=== PATIENT | male | born 1950 | race Caucasian/White ===

== ENCOUNTER 2025-06-12 17:49 | Inpatient (IN) ==
[2025-06-12] MEDS: LACTATED RINGERS 1,000 ML IV ONE (19:01)
[2025-06-12 19:15] LABS: Basophils # (Auto) 0.01 K/mcL (0.00-0.30); Basophils % (Auto) 0.1 % (0.0-2.0); Eosinophils # (Auto) 0.05 K/mcL (0.00-0.70); Eosinophils % (Auto) 0.7 % (0.0-7.0); Hematocrit 35.9 % (40.1-51.0); Hemoglobin 11.4 g/dL (13.7-17.5); Lymphocytes # (Auto) 0.68 K/mcL (1.50-4.80); Lymphocytes % (Auto) 9.1 % (15.5-49.0); Mean Corpuscular HGB Conc 31.8 g/dL (31.0-36.0); Monocytes # (Auto) 0.50 K/mcL (0.10-0.90); Monocytes % (Auto) 6.7 % (1.0-12.0); Neutrophils % (Auto) 83.1 % (38.0-78.0); Platelet Count 219 K/mcL (140-440); RBC 3.75 M/mcL (4.63-6.08); WBC 7.5 K/mcL (4.5-11.0)
[2025-06-12 19:35] LABS: Anion Gap 13.0 (8.0-16.0); Blood Urea Nitrogen 35 mg/dL (8-23); Calcium 10.0 mg/dL (8.6-10.4); Carbon Dioxide 22 mmol/L (22-30); Chloride 105 mmol/L (96-108); Creatine Kinase 227 U/L (24-195); Glucose 162 mg/dL (70-105); Potassium 5.4 mmol/L (3.3-5.1); Sodium 140 mmol/L (133-145)
[2025-06-12 19:43] LABS: INR 1.0 (0.9-1.1); Partial Thromboplastin Time 27.7 sec (20.0-37.0); Prothrombin Time 13.7 sec (11.9-14.5)
[2025-06-12] MEDS ORDERED: POTASSIUM CHLORIDE 20 MEQ TABLET PO PRN ×2 (20:40)
[2025-06-12] MEDS ORDERED: POLYETHYLENE GLYCOL 3350 17 GM PACKET PO PRN (20:40)
[2025-06-12] MEDS ORDERED: MAGNESIUM SULFATE 2 GM/50 ML BAG IV PRN (20:40)
[2025-06-12] MEDS ORDERED: DEXTROSE 31 GM ORAL.SUSP PO PRN (20:40)
[2025-06-12] MEDS ORDERED: ACETAMINOPHEN 325 MG TABLET PO PRN (20:40)
[2025-06-12] MEDS ORDERED: METOCLOPRAMIDE 10 MG/2 ML VIAL IV PRN (20:40)
[2025-06-12] MEDS ORDERED: POTASSIUM CHLORIDE 40 MEQ in DEXTROSE 5% IN WATER 500 ML IV PRN (20:40)
[2025-06-12] MEDS ORDERED: ONDANSETRON 4 MG/2 ML VIAL IV PRN (20:40)
[2025-06-12] MEDS ORDERED: IPRATROPIUM/ALBUTEROL 3 ML AMPUL.NEB NEB PRN (20:40)
[2025-06-12] MEDS ORDERED: DEXTROSE 50% 50 ML VIAL IV PRN (20:40)
[2025-06-12] MEDS ORDERED: SENNOSIDES 1 TABLET PO PRN (20:40)
[2025-06-12] MEDS: GABAPENTIN 300 MG CAPSULE PO SCH (21:16)
[2025-06-12] MEDS: 0.9 % SODIUM CHLORIDE 1,000 ML IV ONE (21:17)
[2025-06-12] MEDS: 0.9 % SODIUM CHLORIDE 10 ML SYRINGE IV SCH (21:23)
[2025-06-12] MEDS: DOCUSATE SODIUM 100 MG CAPSULE PO SCH (21:23)
[2025-06-12] MEDS: INSULIN LISPRO 1 UNIT/0.01 ML UNIT SQ SCH (21:44)
[2025-06-12] MEDS: hydrALAZINE 20 MG/ML VIAL IV PRN (22:16)
[2025-06-12] MEDS: 0.9 % SODIUM CHLORIDE 1,000 ML IV SCH (23:01)
[2025-06-13 05:48] LABS: ALT/SGPT 16 U/L (<40); AST/SGOT 27 U/L (<40); Albumin 3.7 gm/dL (3.2-5.2); Albumin/Globulin Ratio 1.9 (1.0-2.3); Alkaline Phosphatase 24 U/L (39-117); Anion Gap 9.0 (8.0-16.0); Bilirubin,Direct 0.2 mg/dL (<0.3); Bilirubin,Total 0.4 mg/dL (0.1-1.0); Blood Urea Nitrogen 31 mg/dL (8-23); Calcium 9.3 mg/dL (8.6-10.4); Carbon Dioxide 25 mmol/L (22-30); Chloride 107 mmol/L (96-108); Globulin 2.0 gm/dL (2.2-3.7); Glucose 109 mg/dL (70-105); Phosphorous 3.7 mg/dL (2.5-4.5); Potassium 4.7 mmol/L (3.3-5.1); Sodium 141 mmol/L (133-145); Triglycerides 80 mg/dL (<150); Uric Acid 4.3 mg/dL (2.5-8.0)
[2025-06-13] MEDS: LISINOPRIL 20 MG TABLET PO SCH (08:36)
[2025-06-13] MEDS: GABAPENTIN 300 MG CAPSULE PO SCH (08:36)
[2025-06-13] MEDS ORDERED: ONDANSETRON 4 MG/2 ML VIAL ONE (13:35)
[2025-06-13] MEDS ORDERED: METOCLOPRAMIDE 10 MG/2 ML VIAL ONE (13:35)
[2025-06-13] MEDS ORDERED: LIDOCAINE 2% PF 5 ML VIAL ONE (13:35)
[2025-06-13] MEDS ORDERED: ePHEDrine 50 MG/5 ML SYRINGE (ANEST) IV ONE (13:35)
[2025-06-13] MEDS ORDERED: PHENYLephrine 1 MG/10 ML SYRINGE (ANEST) ONE (13:35)
[2025-06-13] MEDS ORDERED: DEXAMETHASONE 10 MG/ML VIAL ONE (13:35)
[2025-06-13] MEDS ORDERED: FAMOTIDINE/PF 20 MG/2 ML VIAL IV ONE (13:35)
[2025-06-13] MEDS ORDERED: GLYCOPYRROLATE 0.2 MG/ML VIAL IV ONE (13:35)
[2025-06-13] MEDS ORDERED: PROPOFOL 200 MG/20 ML VIAL IV ONE (13:36)
[2025-06-13] MEDS ORDERED: MIDAZOLAM 2 MG/2 ML VIAL ONE (13:37)
[2025-06-13] MEDS ORDERED: HYDROmorphone 0.5 MG/0.5 ML SYRINGE ONE (17:37)
[2025-06-13] MEDS ORDERED: ROCURONIUM 10 MG/ML ML IV ONE (17:46)
[2025-06-13] MEDS ORDERED: fentaNYL 100 MCG/2 ML VIAL ONE (17:59)
[2025-06-13] MEDS: VANCOMYCIN 1 GM VIAL TOPICAL SCH (18:00)
[2025-06-13] MEDS ORDERED: IPRATROPIUM/ALBUTEROL 3 ML AMPUL.NEB NEB PRN (18:02)
[2025-06-13] MEDS ORDERED: DROPERIDOL 5 MG/2 ML VIAL IV PRN (18:02)
[2025-06-13] MEDS ORDERED: HYDROmorphone 0.5 MG/0.5 ML SYRINGE IV PRN (18:02)
[2025-06-13] MEDS ORDERED: fentaNYL 100 MCG/2 ML VIAL IV PRN (18:02)
[2025-06-13] MEDS ORDERED: SUGAMMADEX SODIUM 200 MG/2 ML VIAL IV ONE (18:13)
[2025-06-13] MEDS ORDERED: ROPIVACAINE HCL/PF 30 ML VIAL IJ ONE (18:20)
[2025-06-13] MEDS ORDERED: BENZOCAINE/MENTHOL 1 LOZENGE PO PRN (18:23)
[2025-06-13] MEDS ORDERED: MAGNESIUM HYDROXIDE 30 ML ORAL.SUSP PO PRN (18:23)
[2025-06-13] MEDS ORDERED: BISACODYL 10 MG SUPP.RECT PR PRN (18:23)
[2025-06-13] MEDS ORDERED: FLEETS ADULT 1 DOSE ENEMA PR PRN (18:23)
[2025-06-13] MEDS ORDERED: POLYETHYLENE GLYCOL 3350 17 GM PACKET PO PRN (18:23)
[2025-06-13] MEDS: SENNOSIDES 1 TABLET PO SCH (20:07)
[2025-06-13] MEDS: DOCUSATE SODIUM 100 MG CAPSULE PO SCH (20:07)
[2025-06-13] MEDS: ceFAZolin 2 GM in DEXTROSE 5% IN WATER 50 ML IV SCH (20:18)
[2025-06-13] MEDS ORDERED: 0.9 % SODIUM CHLORIDE 1,000 ML IV SCH (23:45)
[2025-06-14 05:58] LABS: Hematocrit 33.5 % (40.1-51.0); Hemoglobin 10.6 g/dL (13.7-17.5)
[2025-06-14 07:58] LABS: INR 1.0 (0.9-1.1); Prothrombin Time 14.4 sec (11.9-14.5)
[2025-06-14] MEDS: LACTATED RINGERS 1,000 ML IV SCH (08:52)
[2025-06-14] MEDS: ASPIRIN 81 MG TAB.CHEW CHEWED ONE (10:16)
[2025-06-14 17:01] VITALS: TEMP 97.9; O2SAT 97
[2025-06-14] MEDS ORDERED: ASPIRIN 81 MG TAB.CHEW CHEWED SCH (21:00)
== END 2025-06-14 18:17 | disposition left against medical advice (07) | DRG 522 ==
LOC: ED 17:49 → MEDSUR 20:38
PROVIDERS: ADMIT Internal Medicine; ATTEND Internal Medicine
PROC: HEMIHIP (2025-06-13 17:09)

== ENCOUNTER 2025-06-15 15:13 | Inpatient (IN) ==
[2025-06-15 15:55] LABS: Basophils # (Auto) 0.01 K/mcL (0.00-0.30); Basophils % (Auto) 0.1 % (0.0-2.0); Eosinophils # (Auto) 0.02 K/mcL (0.00-0.70); Eosinophils % (Auto) 0.3 % (0.0-7.0); Hematocrit 30.8 % (40.1-51.0); Hemoglobin 9.9 g/dL (13.7-17.5); Lymphocytes # (Auto) 0.33 K/mcL (1.50-4.80); Lymphocytes % (Auto) 4.9 % (15.5-49.0); Mean Corpuscular HGB Conc 32.1 g/dL (31.0-36.0); Monocytes # (Auto) 0.40 K/mcL (0.10-0.90); Monocytes % (Auto) 6.0 % (1.0-12.0); Neutrophils % (Auto) 88.6 % (38.0-78.0); Platelet Count 209 K/mcL (140-440); RBC 3.21 M/mcL (4.63-6.08); WBC 6.7 K/mcL (4.5-11.0)
[2025-06-15 16:14] LABS: Alcohol,Blood < 0.010 gm/dL (<0.010)
[2025-06-15 16:21] LABS: ALT/SGPT 28 U/L (<40); AST/SGOT 100 U/L (<40); Albumin 3.4 gm/dL (3.2-5.2); Albumin/Globulin Ratio 1.4 (1.0-2.3); Alkaline Phosphatase 31 U/L (39-117); Anion Gap 15.0 (8.0-16.0); Bilirubin,Total 0.7 mg/dL (0.1-1.0); Blood Urea Nitrogen 43 mg/dL (8-23); Calcium 9.3 mg/dL (8.6-10.4); Carbon Dioxide 20 mmol/L (22-30); Chloride 101 mmol/L (96-108); Globulin 2.4 gm/dL (2.2-3.7); Glucose 185 mg/dL (70-105); Potassium 5.0 mmol/L (3.3-5.1); Sodium 136 mmol/L (133-145)
[2025-06-15 16:24] LABS: Creatine Kinase 2470 U/L (24-195)
[2025-06-15] MEDS: PROPOFOL 200 MG/20 ML VIAL IV ONE (16:50)
[2025-06-15] MEDS ORDERED: ONDANSETRON 4 MG/2 ML VIAL IV PRN (19:49)
[2025-06-15] MEDS ORDERED: DEXTROSE 50% 50 ML VIAL IV PRN (19:49)
[2025-06-15] MEDS ORDERED: DEXTROSE 31 GM ORAL.SUSP PO PRN (19:49)
[2025-06-15] MEDS: 0.9 % SODIUM CHLORIDE 1,000 ML IV SCH (20:13)
[2025-06-15] MEDS: INSULIN LISPRO 1 UNIT/0.01 ML UNIT SQ SCH (21:16)
[2025-06-15] MEDS: 0.9 % SODIUM CHLORIDE 10 ML SYRINGE IV SCH (21:16)
[2025-06-15] MEDS: SENNOSIDES 1 TABLET PO SCH (21:20)
[2025-06-15] MEDS: HEPARIN 5,000 UNIT/ML VIAL SQ SCH (21:20)
[2025-06-15] MEDS: ACETAMINOPHEN 500 MG TABLET PO PRN (21:23)
[2025-06-15] MEDS: HYDROmorphone 0.5 MG/0.5 ML SYRINGE IV PRN (23:48)
[2025-06-16] MEDS: ACETAMINOPHEN 325 MG TABLET PO SCH (01:20)
[2025-06-16 06:48] LABS: ALT/SGPT 40 U/L (<40); AST/SGOT 154 U/L (<40); Albumin 3.2 gm/dL (3.2-5.2); Albumin/Globulin Ratio 1.3 (1.0-2.3); Alkaline Phosphatase 34 U/L (39-117); Anion Gap 11.0 (8.0-16.0); Bilirubin,Direct 0.3 mg/dL (<0.3); Bilirubin,Total 0.6 mg/dL (0.1-1.0); Blood Urea Nitrogen 39 mg/dL (8-23); Calcium 9.1 mg/dL (8.6-10.4); Carbon Dioxide 23 mmol/L (22-30); Chloride 102 mmol/L (96-108); Globulin 2.5 gm/dL (2.2-3.7); Glucose 239 mg/dL (70-105); Phosphorous 2.7 mg/dL (2.5-4.5); Potassium 4.2 mmol/L (3.3-5.1); Sodium 136 mmol/L (133-145); Triglycerides 142 mg/dL (<150); Uric Acid 4.7 mg/dL (2.5-8.0)
[2025-06-16 07:36] LABS: Creatine Kinase 4186 U/L (24-195)
[2025-06-16] MEDS ORDERED: ACETAMINOPHEN 500 MG TABLET PO SCH (08:45)
[2025-06-16] MEDS: HYDROmorphone 0.5 MG/0.5 ML SYRINGE IV PRN (08:49)
[2025-06-16] MEDS: 0.9 % SODIUM CHLORIDE 1,000 ML IV SCH (10:16)
[2025-06-16] MEDS: LISINOPRIL 10 MG TABLET PO SCH (10:23)
[2025-06-16] MEDS: GABAPENTIN 300 MG CAPSULE PO SCH ×2 (11:05→21:21)
[2025-06-16] MEDS ORDERED: ACETAMINOPHEN 325 MG TABLET PO PRN (21:04)
[2025-06-17 07:10] LABS: Creatine Kinase 1486 U/L (24-195)
[2025-06-17 07:11] LABS: ALT/SGPT 38 U/L (<40); AST/SGOT 93 U/L (<40); Albumin 2.9 gm/dL (3.2-5.2); Albumin/Globulin Ratio 1.2 (1.0-2.3); Alkaline Phosphatase 31 U/L (39-117); Anion Gap 7.0 (8.0-16.0); Bilirubin,Direct 0.2 mg/dL (<0.3); Bilirubin,Total 0.5 mg/dL (0.1-1.0); Blood Urea Nitrogen 31 mg/dL (8-23); Calcium 8.5 mg/dL (8.6-10.4); Carbon Dioxide 24 mmol/L (22-30); Chloride 106 mmol/L (96-108); Globulin 2.5 gm/dL (2.2-3.7); Glucose 223 mg/dL (70-105); Phosphorous 2.1 mg/dL (2.5-4.5); Potassium 4.2 mmol/L (3.3-5.1); Sodium 137 mmol/L (133-145); Triglycerides 163 mg/dL (<150); Uric Acid 4.1 mg/dL (2.5-8.0)
[2025-06-17] MEDS: HYDROmorphone 0.5 MG/0.5 ML SYRINGE IV PRN (10:39)
[2025-06-17] MEDS: CALCIUM CARBONATE 500 MG TAB.CHEW CHEWED PRN (11:57)
[2025-06-17] MEDS: INSULIN LISPRO 1 UNIT/0.01 ML UNIT SQ SCH ×2 (12:22→21:05)
[2025-06-17] MEDS: POLYETHYLENE GLYCOL 3350 17 GM PACKET PO PRN (17:36)
[2025-06-18 06:30] LABS: ALT/SGPT 33 U/L (<40); AST/SGOT 58 U/L (<40); Albumin 2.7 gm/dL (3.2-5.2); Albumin/Globulin Ratio 1.2 (1.0-2.3); Alkaline Phosphatase 31 U/L (39-117); Anion Gap 7.0 (8.0-16.0); Bilirubin,Direct 0.2 mg/dL (<0.3); Bilirubin,Total 0.4 mg/dL (0.1-1.0); Blood Urea Nitrogen 28 mg/dL (8-23); Calcium 8.8 mg/dL (8.6-10.4); Carbon Dioxide 25 mmol/L (22-30); Chloride 107 mmol/L (96-108); Creatine Kinase 540.0 U/L (24-195); Globulin 2.2 gm/dL (2.2-3.7); Glucose 121 mg/dL (70-105); Phosphorous 2.9 mg/dL (2.5-4.5); Potassium 4.4 mmol/L (3.3-5.1); Sodium 139 mmol/L (133-145); Triglycerides 114 mg/dL (<150); Uric Acid 3.7 mg/dL (2.5-8.0)
[2025-06-18] MEDS ORDERED: INSULIN GLARGINE, HUMAN 1 UNIT/0.01 ML SQ SCH (09:00)
[2025-06-18] MEDS: FUROSEMIDE 40 MG/4 ML VIAL IV SCH (10:26)
[2025-06-18] MEDS: INSULIN GLARGINE, HUMAN 1 UNIT/0.01 ML SQ SCH (10:27)
[2025-06-18 10:50] LABS: Estimated Average Glucose(eAG) 151.0 mg/dL; Hemoglobin A1C 6.9 % Hgb (4.0-6.0)
[2025-06-19 05:54] LABS: Creatine Kinase 228 U/L (24-195)
[2025-06-19 10:57] LABS: Albumin 3.2 gm/dL (3.2-5.2); Anion Gap 14.0 (8.0-16.0); Blood Urea Nitrogen 32.0 mg/dL (8-23); Calcium 9.3 mg/dL (8.6-10.4); Carbon Dioxide 25.0 mmol/L (22-30); Chloride 100.0 mmol/L (96-108); Glucose 227.0 mg/dL (70-105); Phosphorous 3.7 mg/dL (2.5-4.5); Potassium 4.4 mmol/L (3.3-5.1); Sodium 139.0 mmol/L (133-145)
[2025-06-19 12:46] VITALS: TEMP 98.5; O2SAT 95
== END 2025-06-19 14:30 | DRG 558 ==
LOC: ED 15:13 → MEDSUR 19:38
PROVIDERS: ADMIT Internal Medicine; ATTEND Internal Medicine

== ENCOUNTER 2025-06-21 11:24 | Inpatient (IN) ==
[2025-06-21] MEDS ORDERED: fentaNYL 100 MCG/2 ML VIAL ONE (14:01)
[2025-06-21] MEDS ORDERED: FAMOTIDINE/PF 20 MG/2 ML VIAL IV ONE (14:01)
[2025-06-21] MEDS ORDERED: ONDANSETRON 4 MG/2 ML VIAL ONE (14:01)
[2025-06-21] MEDS ORDERED: PROPOFOL 200 MG/20 ML VIAL IV ONE (14:01)
[2025-06-21] MEDS ORDERED: DEXAMETHASONE 10 MG/ML VIAL ONE (14:01)
[2025-06-21] MEDS ORDERED: GLYCOPYRROLATE 0.2 MG/ML VIAL IV ONE (14:01)
[2025-06-21] MEDS ORDERED: LIDOCAINE 2% PF 5 ML VIAL ONE (14:01)
[2025-06-21] MEDS ORDERED: TRANEXAMIC ACID 1,000 MG/10 ML VIAL ONE (14:01)
[2025-06-21] MEDS: PROPOFOL 200 MG/20 ML VIAL IV ONE (14:04)
[2025-06-21] MEDS: ceFAZolin 2 GM in DEXTROSE 5% IN WATER 50 ML IV SCH ×2 (14:39→17:35)
[2025-06-21] MEDS ORDERED: ROCURONIUM 10 MG/ML ML IV ONE ×2 (14:49→15:12)
[2025-06-21] MEDS ORDERED: SUGAMMADEX SODIUM 200 MG/2 ML VIAL IV ONE (14:51)
[2025-06-21] MEDS ORDERED: PHENYLephrine 1 MG/10 ML SYRINGE (ANEST) ONE (14:53)
[2025-06-21] MEDS ORDERED: ePHEDrine 50 MG/5 ML SYRINGE (ANEST) IV ONE (15:05)
[2025-06-21] MEDS: VANCOMYCIN 1 GM VIAL TOPICAL SCH (15:05)
[2025-06-21] MEDS: TOBRAMYCIN SULFATE 1.2 GM VIAL TOPICAL ONE (15:05)
[2025-06-21 15:08] LABS: Basophils # (Auto) 0.02 K/mcL (0.00-0.30); Basophils % (Auto) 0.3 % (0.0-2.0); Eosinophils # (Auto) 0.20 K/mcL (0.00-0.70); Eosinophils % (Auto) 3.2 % (0.0-7.0); Hematocrit 28.2 % (40.1-51.0); Hemoglobin 9.1 g/dL (13.7-17.5); Lymphocytes # (Auto) 0.90 K/mcL (1.50-4.80); Lymphocytes % (Auto) 14.6 % (15.5-49.0); Mean Corpuscular HGB Conc 32.3 g/dL (31.0-36.0); Monocytes # (Auto) 0.49 K/mcL (0.10-0.90); Monocytes % (Auto) 7.9 % (1.0-12.0); Neutrophils % (Auto) 72.7 % (38.0-78.0); Platelet Count 320 K/mcL (140-440); RBC 2.91 M/mcL (4.63-6.08); WBC 6.2 K/mcL (4.5-11.0)
[2025-06-21] MEDS ORDERED: NALOXONE HCL 0.4 MG/ML VIAL IV PRN (15:10)
[2025-06-21] MEDS ORDERED: BENZOCAINE/MENTHOL 1 LOZENGE PO PRN ×2 (15:10→15:40)
[2025-06-21] MEDS ORDERED: fentaNYL 100 MCG/2 ML VIAL IV PRN (15:10)
[2025-06-21] MEDS ORDERED: HYDROmorphone 0.5 MG/0.5 ML SYRINGE IV PRN (15:10)
[2025-06-21] MEDS ORDERED: IPRATROPIUM/ALBUTEROL 3 ML AMPUL.NEB NEB PRN ×2 (15:10→16:55)
[2025-06-21] MEDS ORDERED: ONDANSETRON 4 MG/2 ML VIAL IV PRN ×2 (15:10→16:55)
[2025-06-21] MEDS ORDERED: LACTATED RINGERS 250 ML IV PRN (15:10)
[2025-06-21] MEDS ORDERED: HYDROmorphone 0.5 MG/0.5 ML SYRINGE ONE (15:19)
[2025-06-21 15:35] LABS: INR 1.0 (0.9-1.1); Prothrombin Time 14.0 sec (11.9-14.5)
[2025-06-21] MEDS ORDERED: METHOCARBAMOL 750 MG TABLET PO PRN (15:40)
[2025-06-21] MEDS: ACETAMINOPHEN 1,000 MG/100 ML BAG IV ONE (16:00)
[2025-06-21] MEDS: METHOCARBAMOL 1,000 MG/10 ML VIAL IV PRN (16:11)
[2025-06-21 16:16] LABS: ALT/SGPT 29 U/L (<40); AST/SGOT 27 U/L (<40); Albumin 2.8 gm/dL (3.2-5.2); Albumin/Globulin Ratio 1.2 (1.0-2.3); Alkaline Phosphatase 40 U/L (39-117); Anion Gap 8.0 (8.0-16.0); Bilirubin,Total 0.4 mg/dL (0.1-1.0); Blood Urea Nitrogen 35 mg/dL (8-23); Calcium 8.7 mg/dL (8.6-10.4); Carbon Dioxide 31 mmol/L (22-30); Chloride 100 mmol/L (96-108); Globulin 2.3 gm/dL (2.2-3.7); Glucose 217 mg/dL (70-105); Potassium 4.5 mmol/L (3.3-5.1); Sodium 139 mmol/L (133-145)
[2025-06-21] MEDS ORDERED: DEXTROSE 31 GM ORAL.SUSP PO PRN (16:55)
[2025-06-21] MEDS ORDERED: ACETAMINOPHEN 325 MG TABLET PO PRN (16:55)
[2025-06-21] MEDS ORDERED: DEXTROSE 50% 50 ML VIAL IV PRN (16:55)
[2025-06-21] MEDS ORDERED: BACLOFEN 10 MG TABLET PO PRN (16:55)
[2025-06-21] MEDS ORDERED: hydrALAZINE 20 MG/ML VIAL IV PRN (16:55)
[2025-06-21] MEDS: LACTATED RINGERS 1,000 ML IV SCH (17:35)
[2025-06-21] MEDS: INSULIN LISPRO 1 UNIT/0.01 ML UNIT SQ SCH (18:00)
[2025-06-21] MEDS ORDERED: ACETAMINOPHEN (PP) 325MG TABLET (#50) PO PRN (18:54)
[2025-06-21] MEDS: GABAPENTIN 300 MG CAPSULE PO SCH (20:38)
[2025-06-21] MEDS: DOCUSATE SODIUM 100 MG CAPSULE PO SCH (20:39)
[2025-06-21] MEDS: SENNOSIDES 1 TABLET PO SCH (20:40)
[2025-06-21] MEDS: 0.9 % SODIUM CHLORIDE 10 ML SYRINGE IV SCH (22:10)
[2025-06-22 06:31] LABS: Basophils # (Auto) 0.01 K/mcL (0.00-0.30); Basophils % (Auto) 0.1 % (0.0-2.0); Eosinophils # (Auto) 0 K/mcL (0.00-0.70); Eosinophils % (Auto) 0 % (0.0-7.0); Hematocrit 25.1 % (40.1-51.0); Hemoglobin 8.3 g/dL (13.7-17.5); Lymphocytes # (Auto) 0.51 K/mcL (1.50-4.80); Lymphocytes % (Auto) 5.9 % (15.5-49.0); Mean Corpuscular HGB Conc 33.1 g/dL (31.0-36.0); Monocytes # (Auto) 0.32 K/mcL (0.10-0.90); Monocytes % (Auto) 3.7 % (1.0-12.0); Neutrophils % (Auto) 88.9 % (38.0-78.0); Platelet Count 325 K/mcL (140-440); RBC 2.62 M/mcL (4.63-6.08); WBC 8.6 K/mcL (4.5-11.0)
[2025-06-22 06:45] LABS: Estimated Average Glucose(eAG) 151 mg/dL; Hemoglobin A1C 6.9 % Hgb (4.0-6.0)
[2025-06-22 06:47] LABS: Anion Gap 9.0 (8.0-16.0); Blood Urea Nitrogen 38 mg/dL (8-23); Calcium 8.9 mg/dL (8.6-10.4); Carbon Dioxide 28 mmol/L (22-30); Chloride 96 mmol/L (96-108); Glucose 360 mg/dL (70-105); Potassium 5.4 mmol/L (3.3-5.1); Sodium 133 mmol/L (133-145)
[2025-06-22] MEDS: FERROUS SULFATE 325 MG TABLET PO SCH (07:59)
[2025-06-22] MEDS: MULTIVIT,THER IRON,CA,FA & MIN 1 TABLET PO SCH (08:03)
[2025-06-22] MEDS: CYANOCOBALAMIN (VITAMIN B-12) 500 MCG TABLET PO SCH (08:03)
[2025-06-22] MEDS: LISINOPRIL 20 MG TABLET PO SCH (08:03)
[2025-06-22] MEDS: GABAPENTIN 300 MG CAPSULE PO SCH (08:04)
[2025-06-22] MEDS: VITAMIN D3 125 MCG TABLET PO SCH (08:04)
[2025-06-22] MEDS: FENOFIBRATE 43 MG CAPSULE PO SCH (08:04)
[2025-06-22] MEDS ORDERED: NON FORMULARY MEDICATION 1 DOSE MISCELL (Krill Oil 500 mg capsule) PO SCH (09:00)
[2025-06-22] MEDS ORDERED: [UNRECOGNIZED DRUG - OTHER] PO SCH (09:00)
[2025-06-22] MEDS ORDERED: PIOGLITAZONE HCL 45 MG TABLET PO SCH (09:00)
[2025-06-22] MEDS ORDERED: [UNRECOGNIZED DRUG - OTHER] PO SCH (09:00)
[2025-06-22] MEDS: cefTRIAXone 2 GM in DEXTROSE 5% IN WATER 50 ML IV SCH (10:57)
[2025-06-22] MEDS: PIOGLITAZONE 15 MG TABLET PO SCH (14:08)
[2025-06-22] MEDS: ASPIRIN 81 MG TAB.CHEW CHEWED SCH (20:30)
[2025-06-23 06:34] LABS: Basophils # (Auto) 0.02 K/mcL (0.00-0.30); Basophils % (Auto) 0.3 % (0.0-2.0); Eosinophils # (Auto) 0.12 K/mcL (0.00-0.70); Eosinophils % (Auto) 1.6 % (0.0-7.0); Hematocrit 24.1 % (40.1-51.0); Hemoglobin 7.8 g/dL (13.7-17.5); Lymphocytes # (Auto) 1.43 K/mcL (1.50-4.80); Lymphocytes % (Auto) 18.5 % (15.5-49.0); Mean Corpuscular HGB Conc 32.4 g/dL (31.0-36.0); Monocytes # (Auto) 0.49 K/mcL (0.10-0.90); Monocytes % (Auto) 6.3 % (1.0-12.0); Neutrophils % (Auto) 71.9 % (38.0-78.0); Platelet Count 356 K/mcL (140-440); RBC 2.50 M/mcL (4.63-6.08); WBC 7.7 K/mcL (4.5-11.0)
[2025-06-23 06:55] LABS: Anion Gap 9.0 (8.0-16.0); Blood Urea Nitrogen 46 mg/dL (8-23); Calcium 9.4 mg/dL (8.6-10.4); Carbon Dioxide 27 mmol/L (22-30); Chloride 97 mmol/L (96-108); Glucose 230 mg/dL (70-105); Potassium 4.9 mmol/L (3.3-5.1); Sodium 133 mmol/L (133-145)
[2025-06-23 12:51] VITALS: TEMP 98.5; O2SAT 97
== END 2025-06-23 12:02 | DRG 467 ==
LOC: ED 11:24 → SUR 14:35 → MEDSUR 16:52
PROVIDERS: ADMIT Internal Medicine; ATTEND Orthopaedic Surgery Orthopaedic Surgery of the Spine